=== PATIENT | female | born 2000 | race Hispanic/Latino ===

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

== ENCOUNTER 2020-01-30 16:57 | Emergency (ER) | payer SELFPAY ==
[2020-01-30 18:54] LABS: Urine Bacteria 20-50 /HPF (<20); Urine Culture Reflex Order REFLEXED; Urine RBC LOADED /HPF (NONE SEEN)
--- NOTE | 2020-01-30 20:02 | EDPHYS ---
Physician Documentation [facility] Name: Alivia Mcclendon Age: 19 yrs Sex: Female : 2000 Arrival Date: 01/30/2020 Time: 17:00 Bed 12 Private MD: ED Physician Cesar Daniel HPI: 01/29 19:59 This 19 yrs old Female presents to ER via Ambulatory with complaints of Pain snw With Urination. 19:59 Onset: The symptoms/episode began/occurred suddenly, 3 day(s) ago. Associated signs and snw symptoms: The patient has no apparent associated signs or symptoms. Modifying factors: The patient symptoms are alleviated by nothing, the patient symptoms are aggravated by urination. The patient has not experienced similar symptoms in the past. The patient has not recently seen a physician. LMP January 16, 2020. 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 - Social history:: Smoking status: Patient denies any tobacco usage or history of. Patient/guardian denies using. ROS: 20:00 Constitutional: Negative for fever, chills, and weight loss, Eyes: Negative for injury, snw pain, redness, and discharge, ENT: Negative for injury, pain, and discharge, Neck: Negative for injury, pain, and swelling, Cardiovascular: Negative for chest pain, palpitations, and edema, Respiratory: Negative for shortness of breath, cough, wheezing, and pleuritic chest pain, Abdomen/GI: Negative for abdominal pain, nausea, vomiting, diarrhea, and constipation, Back: Negative for injury and pain, MS/Extremity: Negative for injury and deformity, Skin: Negative for injury, rash, and discoloration, Neuro: Negative for headache, weakness, numbness, tingling, and seizure, Psych: Negative for depression, anxiety, suicide ideation, homicidal ideation, and hallucinations. 20:00 : Positive for urinary symptoms. Exam: 20:00 Constitutional: This is a well developed, well nourished patient who is awake, alert, snw and in no acute distress. Head/Face: Normocephalic, atraumatic. Eyes: Pupils equal round and reactive to light, extra-ocular motions intact. Lids and lashes normal. Conjunctiva and sclera are non-icteric and not injected. Cornea within normal limits. Periorbital areas with no swelling, redness, or edema. ENT: Nares patent. No nasal discharge, no septal abnormalities noted. Tympanic membranes are normal and external auditory canals are clear. Oropharynx with no redness, swelling, or masses, exudates, or evidence of obstruction, uvula midline. Mucous membranes moist. Neck: Trachea midline, no thyromegaly or masses palpated, and no cervical lymphadenopathy. Supple, full range of motion without nuchal rigidity, or vertebral point tenderness. No Meningismus. Chest/axilla: Normal chest wall appearance and motion. Nontender with no deformity. No lesions are appreciated. Cardiovascular: Regular rate and rhythm with a normal S1 and S2. No gallops, murmurs, or rubs. Normal PMI, no JVD. No pulse deficits. Respiratory: Lungs have equal breath sounds bilaterally, clear to auscultation and percussion. No rales, rhonchi or wheezes noted. No increased work of breathing, no retractions or nasal flaring. Abdomen/GI: Soft, non-tender, with normal bowel sounds. No distension or tympany. No guarding or rebound. No evidence of tenderness throughout. Back: No spinal tenderness. No costovertebral tenderness. Full range of motion. Skin: Warm, dry with normal turgor. Normal color with no rashes, no lesions, and no evidence of cellulitis. MS/ Extremity: Pulses equal, no cyanosis. Neurovascular intact. Full, normal range of motion. Neuro: Awake and alert, GCS 15, oriented to person, place, time, and situation. Cranial nerves II-XII grossly intact. Motor strength 5/5 in all extremities. Sensory grossly intact. Cerebellar exam normal. Normal gait. Psych: Awake, alert, with orientation to person, place and time. Behavior, mood, and affect are within normal limits. Vital Signs: 17:11 BP 117 / 73; Pulse 87; Resp 17; Temp 98.9(TE); Pulse Ox 99% on R/A; Weight 54.43 kg tw2 (R); Height 5 ft. 6 in. (167.64 cm); Pain 9/10; 20:10 BP 117 / 80; Pulse 69; Resp 17; Temp 98.6; Pulse Ox 100% on R/A; Pain 0/10; sg 17:11 Body Mass Index 19.37 (54.43 kg, 167.64 cm) tw2 MDM: 20:00 Data reviewed: vital signs, nurses notes. Data interpreted: Pulse oximetry: on room air snw is 99 %. Interpretation: normal. Counseling: I had a detailed discussion with the patient and/or guardian regarding: the historical points, exam findings, and any diagnostic results supporting the discharge/admit diagnosis, lab results, the need for outpatient follow up, to return to the emergency department if symptoms worsen or persist or if there are any questions or concerns that arise at home. Response to treatment: the patient's symptoms have mildly improved after treatment. Special discussion: Based on the history and exam findings, there is no indication for further emergent testing or inpatient evaluation. I discussed with the patient/guardian the need to see the primary care provider for further evaluation of the symptoms. 20:01 Patient medically screened. snw 01/29 17:25 Order name: Urine Microscopic Only; Complete Time: 19:39 bd 01/29 17:25 Order name: Urine Culture bd 01/29 20:15 Order name: Urine Dipstick--Ancillary (enter results) [facility] 01/29 20:15 Order name: Urine --Ancillary (enter results) [facility] 01/29 17:58 Order name: Urine Test (obtain specimen); Complete Time: 20:03 snw Administered Medications: 20:04 Drug: Macrobid 100 mg Route: PO; sg 20:04 Drug: Pyridium 100 mg Route: PO; sg Disposition: 01/30 13:16 Co-signature as Attending Physician, Cesar Daniel MD I agree with the assessment and kdr plan of care. Disposition: 01/30/20 20:01 Discharged to Home. Impression: Urinary tract infection, site not specified. - Condition is Stable. - Discharge Instructions: Urinary Tract Infection, Adult, Rehydration, Adult. - Prescriptions for Pyridium 200 mg Oral Tablet - take 1 tablet by ORAL route every 8-12 hours As needed; 5 tablet. Macrobid 100 mg Oral Capsule - take 1 capsule by ORAL route every 12 hours for 10 days; 20 capsule. promethazine 25 mg Oral Tablet - take 1 tablet by ORAL route every 6 hours As needed; 20 tablet. - Work release form, Medication Reconciliation Form, Thank You Letter, Antibiotic Education, Prescription Opioid Use form. - Follow up: Private Physician; When: 2 - 3 days; Reason: Recheck today's complaints, Continuance of care, Re-evaluation by your physician. Follow up: Emergency Department; When: As needed; Reason: Worsening of condition. Signatures: Dispatcher [employer] EDNC David Harley, RN RN sg Cesar Daniel MD MD [facility] Ruby Melo, MANAGER FREELANCE-C MANAGER FREELANCE-Csnw Lala Thomas RN RN tw2 Jian Hagen RN RN rr5 Corrections: (The following items were deleted from the chart) 01/29 20:15 19:42 URINALYSIS+U.LAB.BRZ ordered. [facility] 20:16 20:01 01/30/2020 20:01 Discharged to Home. Impression: Urinary tract infection, site rr5 not specified. Condition is Stable. Forms are Medication Reconciliation Form, Thank You Letter, Antibiotic Education, Prescription Opioid Use. Follow up: Private Physician; When: 2 - 3 days; Reason: Recheck today's complaints, Continuance of care, Re-evaluation by your physician. Follow up: Emergency Department; When: As needed; Reason: Worsening of condition. snw
--- NOTE | 2020-01-30 20:02 | ER ---
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 Coronavirus screen: Patient denies a cough. Patient denies shortness of breath or difficulty breathing. Patient denies measured and/or subjective temperature greater than 100.4F prior to today's visit. Patient denies travel on a cruise ship or to a country the [facility]NOTE 3] currently lists as an affected area. Patient denies contact with known and/or suspected case of COVID-19. Ebola Screen: Patient denies travel to an Ebola-affected area in the 21 days before illness onset. Initial Sepsis Screen: Does the patient meet any 2 criteria? No. Patient's initial sepsis screen is negative. Does the patient have a suspected source of infection? No. Patient's initial sepsis screen is negative. Risk Assessment: Do you want to hurt yourself or someone else? Patient reports no desire to harm self or others. Onset of symptoms was January 30, 2020. 17:11 Method Of Arrival: Ambulatory tw2 17:11 Acuity: KM 4 tw2 Triage Assessment: 17:15 General: Appears in no apparent distress. slender, well groomed, Behavior is calm, tw2 cooperative, appropriate for age. Pain: Denies pain. GI: Reports. : Reports burning with urination, since Wednesday. [employer] SERVICE: 17:15 LMP 01/16/2020 tw2 Historical: - Allergies: 17:14 No Known Allergies; tw2 - Home Meds: 17:14 None [Active]; tw2 - PMHx: 17:14 None; tw2 - PSHx: 17:14 None; tw2 - Immunization history:: Adult Immunizations. - Social history:: Smoking status: Patient denies any tobacco usage or history of. Patient/guardian denies using. Screenin:50 Abuse screen: Denies threats or abuse. Denies injuries from another. Nutritional sg screening: No deficits noted. Tuberculosis screening: No symptoms or risk factors identified. Never had TB. Fall Risk None identified. Assessment: 19:20 Reassessment: pt ambulatory with steady gait to the exam room, Latanya PAIGE to speak with sg pt with YULIYA MARAVILLA, or the Language line will be utilized. 19:40 General: Appears in no apparent distress. well groomed, well developed, well nourished, sg Behavior is calm, cooperative, appropriate for age. Pain: Complains of pain in pain/burning with blood tinged urine. Neuro: Level of Consciousness is awake, alert, obeys commands, Oriented to person, place, time, Speech is normal, Facial symmetry appears normal. Cardiovascular: Patient's skin is warm and dry. Respiratory: Airway is patent Respiratory effort is even, unlabored, Respiratory pattern is regular, symmetrical. GI: No signs and/or symptoms were reported involving the gastrointestinal system. Bowel sounds present X 4 quads. Abd is soft X 4 quads Abd is non tender X 4 quads Reports normal bowel habits, tolerance of fluids, tolerance of food. : Reports burning with urination, pain urinary frequency. EENT: No signs and/or symptoms were reported regarding the EENT system. Derm: Skin is pink, warm \T\ dry. Musculoskeletal: Circulation, motion, and sensation intact. Range of motion: intact in all extremities. 19:41 Reassessment: spoke with lab, Valeria reports the specimen has been poured off, requests sg more urine for a UA/UPT to be resulted. 19:53 Reassessment: [employer] Brand Representative used, pt to provide more urine. sg 20:21 Reassessment: pt given medications and discharge instructions interpreted by [employer] bridge game director by Carlene Thomas [id number]. Vital Signs: 17:11 BP 117 / 73; Pulse 87; Resp 17; Temp 98.9(TE); Pulse Ox 99% on R/A; Weight 54.43 kg tw2 (R); Height 5 ft. 6 in. (167.64 cm); Pain 9/10; 20:10 BP 117 / 80; Pulse 69; Resp 17; Temp 98.6; Pulse Ox 100% on R/A; Pain 0/10; sg 17:11 Body Mass Index 19.37 (54.43 kg, 167.64 cm) tw2 ED Course: 17:00 Patient arrived in ED. mr 17:13 Triage completed. tw2 17:13 Arm band placed on. tw2 17:31 Urine Culture Sent. bd 17:31 Urine Microscopic Only Sent. bd 17:57 Ruby Melo FNP-C [facility]. snw 17:57 Cesar Daniel MD is Attending Physician. snw 19:43 David Harley, RN is Primary Nurse. sg 20:10 Patient has correct armband on for positive identification. Bed in low position. Call sg light in reach. Side rails up X2. Pulse ox on. NIBP on. Warm blanket given. Head of bed elevated. 20:10 No provider procedures requiring assistance completed. Patient did not have IV access sg during this emergency room visit. Administered Medications: 20:04 Drug: Macrobid 100 mg Route: PO; sg 20:04 Drug: Pyridium 100 mg Route: PO; sg Outcome: 20:01 Discharge ordered by . snw 20:10 Discharged to home ambulatory, with family. sg 20:10 Condition: good 20:10 Discharge instructions given to patient, VIA [employer] Brand Representative Carlene E [id number] Instructed on discharge instructions, follow up and referral plans. safety practices, Demonstrated understanding of instructions, follow-up care, medications, Prescriptions given X 3. 20:16 Patient left the ED. rr5 Addendum: 02/05/2020 07:31 Addendum: Culture Results: Positive urine culture. No further action required. Bacteria e b sensitive to prescribed antibiotic. Signatures: Ana M Mack Steven, RN RN sg Ruby Melo, [employer]ANC FLOORING GRADER-Csnw Shabana BradfordLala RN RN tw2 Luisa Loza Raymond, RN RN rr5 Corrections: (The following items were deleted from the chart) 01/29 17:15 17:11 Acuity: KM 3 tw2 tw2
--- OUTSIDE RECORDS SUMMARY | 2020-01-30 20:03 | XMS REPORT | Continuity of Care Document ---
:2000 Author Organization [facility] t Address [facility] [place] [id number] Care Team Providers Name Role Phone Kay Lozano Attending Clinician Problems This patient has no known problems. Allergies, Adverse Reactions, Alerts This patient has no known allergies or adverse reactions. Medications This patient has no known medications. Procedures This patient has no known procedures. Encounters Start End Encounter Admission Attending Care Care Encounter Source Date/Time Date/Time Type Type Clinicians Facility Department ID 2019-09-26 2019-09-26 Emergency Helen [facility] [id number] 17:58:20 18:59:00 Pamela Phillips [id number] [place] [id number] [place] [id number] Results This patient has no known results.
[2020-01-30] MEDS ORDERED: NITROFURAN MACRO 100 MG CAP PO ONE (20:13)
[2020-01-30] MEDS ORDERED: DOXYCYCLINE 100 MG CAP PO ONE (20:13)
[2020-01-30] MEDS ORDERED: PHENAZOPYRIDINE 100MG TAB PO ONE (20:14)
[2020-01-30 20:22] VITALS: BP 117/73; TEMP 98.9; O2SAT 99
[2020-01-30 20:43] LABS: Urine Blood 3+ (NEG); Urine Glucose NEGATIVE (NEG); Urine Protein 1+ (NEG); Urine Specific Gravity 1.025 (1.005-1.030)
== END 2020-01-30 20:16 | disposition home or self-care (01) ==
LOC: ER 16:57
DX: N39.0 Urinary tract infection, site not specified (principal)
CPT/HCPCS: 81003; 81015; 81025; 87077; 87086; 87088; 87186; 99284